=== PATIENT | male | born 1980 | race Caucasian/White ===

== ENCOUNTER 2020-06-25 16:51 | Emergency (ER) | payer BC, SELFPAY ==
[~2020-06-25] VITALS: Ht 170.2 cm; Wt 63.5 kg
[2020-06-25 16:57] VITALS: BP_SYST 136
--- NOTE | 2020-06-25 17:00 | NUR ---
Patient triaged and placed ER Tent. VSS and patient appears in no acute distress at this time. Awaiting available bed, and MD notified of need for MSE.
--- NOTE | 2020-06-25 17:01 | NUR ---
Patient came for evaluation of COVID-19 symptoms. Patient just tested positive and is complainining of SOB.
--- NOTE | 2020-06-25 18:36 | NUR ---
ER Dr. Jaffe in ER tent examining patient.
[2020-06-25 18:45] VITALS: BP_SYST 128
--- NOTE | 2020-06-25 18:45 | NUR ---
Patient given written and verbal discharge instructions and verbalizes understanding. ER MD discussed with patient the results and treatment provided. Patient in stable condition. ID arm band removed. Rx of azithromycin,promethazine,vitamin d3, zinc given. Patient educated on pain management and to follow up with PMD. Pain Scale 0/10. Opportunity for questions provided and answered. Medication side effect fact sheet provided.
== END 2020-06-25 18:45 | disposition home or self-care (01) ==
LOC: SED 16:51
DX: U07.1 COVID-19 (principal)
CPT/HCPCS: 71045; 93005; 99283